=== PATIENT | male | born 1950 | race Caucasian/White ===

== ENCOUNTER 2016-07-30 13:43 | Inpatient (IN) | payer MEDICARE, BC ==
[~2016-07-30] VITALS: Ht 177.8 cm; Wt 77.0 kg
[2016-07-30 14:40] VITALS: BP 150/83; PULSE 105; RESP 20; TEMP 98; O2SAT 98
[2016-07-30] MEDS ORDERED: IBUP400T20 PO (15:46)
[2016-07-30] MEDS ORDERED: ASPI325T PO (15:46)
[2016-07-30] MEDS ORDERED: Vancomycin Consult Pharmacy 1 EA OTHER SCH (17:45)
[2016-07-30 17:50] LABS: AUTOMATED NEUTROPHIL # 3.4 TH/MM3 (1.8-7.7); BASOPHIL % 0.5 % (0.0-2.0); EOSINOPHIL # 0.2 TH/MM3 (0-0.4); EOSINOPHIL % 3.4 % (0.0-4.0); HEMATOCRIT 38.3 % (39.0-51.0); HEMO FLAGS DIFF FINAL; LYMPH % 26.2 % (9.0-44.0); LYMPHOCYTE # 1.5 TH/MM3 (1.0-4.8); MEAN CELL VOLUME 90.7 FL (80.0-100.0); MEAN CORPUSCULAR HEMOGLOBIN 32.2 PG (27.0-34.0); MEAN CORPUSCULAR HGB CONC 35.5 % (32.0-36.0); NEUT % 59.9 % (16.0-70.0); PLATELET COUNT 239 TH/MM3 (150-450); RED BLOOD COUNT 4.22 MIL/MM3 (4.50-5.90); RED CELL DISTRIBUTION WIDTH 12.8 % (11.6-17.2); WHITE BLOOD COUNT 5.7 TH/MM3 (4.0-11.0)
[2016-07-30] MEDS: DEXT 5%-NACL 0.45% 1000 ML INJ 1,000 ML IV SCH (17:51)
[2016-07-30] MEDS: PIPERACIL-TAZO 3.375 GM PREMIX 50 ML IV SCH (17:51)
[2016-07-30] MEDS ORDERED: VANCOMYCIN INJ 1,250 MG in SODIUM CHLOR 0.9% 250 ML INJ 250 ML IV ONE (18:00)
[2016-07-30 18:09] LABS: BICARBONATE 28.1 MEQ/L (21.0-32.0)
[2016-07-30 19:13] VITALS: BP 139/65; PULSE 97; RESP 18; TEMP 98.2; O2SAT 97
[2016-07-30] MEDS ORDERED: PROP20TA3 PO (20:47)
[2016-07-30] MEDS ORDERED: PRIM50TA5 PO (20:47)
[2016-07-31] VITALS (7 sets, daily range): BP systolic 125–163; BP diastolic 72–90; PULSE 76–86; RESP 18–20; TEMP 97.4–98.4; O2SAT 96–100
[2016-07-31] MEDS: PIPERACIL-TAZO 3.375 GM PREMIX 50 ML IV SCH ×4 (00:17→17:25)
[2016-07-31] MEDS: VANCOMYCIN 1,000 MG/NS 250 ML IV SCH ×4 (06:23→17:25)
[2016-07-31] MEDS: DEXT 5%-NACL 0.45% 1000 ML INJ 1,000 ML IV SCH ×2 (09:02→20:13)
--- NOTE | 2016-07-31 21:12 | PD.ID.CON ---
History of Present Illness Service ID Consult Requested By Dr Eastman Reason for Consult scrotal infx; sp penile implant Primary Care Physician Carlos Richardson M.D. Diagnoses: History of Present Illness 65 yo male with ho ED sp penile implant on Jul 06 this yr presented with scrotal swelling , redness and discofort (worse with sitting) persistent after surgery He denies fever, chills, No drainage from incision He was started on abx ( zosyn, vancomycin) and his simptoms significantly improved He can sit without problems today He denies fevers, chills and his WBC is WNL Review of Systems Except as stated in HPI: all other systems reviewed are Neg Past Family Social History Allergies: Coded Allergies: No Known Allergies (Unverified , 07/30/16) NKA Past Medical History HTN TIA ED Past Surgical History neck sx hernia repair peni,le implant Active Ordered Medications Medications where reviewed in EMR Antibiotics Include: vancomycin zosyn Family History Non-Contributory. Social History remote Tobacco (> 40 yrs ago) No ETOH. No Illicit Drugs. Physical Exam Vital Signs Vital Signs Date Time Temp Pulse Resp B/P Pulse Ox O2 Delivery O2 Flow Rate FiO2 07/31/16 19:58 98.3 76 20 163/90 96 07/31/16 15:53 98.3 77 18 141/88 97 07/31/16 12:07 97.9 80 18 140/78 97 07/31/16 08:01 97.4 78 19 149/72 100 07/31/16 04:01 98.4 86 18 125/77 97 07/31/16 00:54 98.2 78 18 128/77 97 Physical Exam CONSTITUTIONAL/GENERAL: This is an adequately nourished patient, in no apparent distress. TUBES/LINES/DRAINS: SKIN: No jaundice, rashes, or lesions. Ecchymoses on upper extremities. No wounds seen anteriorly. Skin temperature appropriate. Not diaphoretic. HEAD: Atraumatic. Normocephalic. EYES: Pupils equal and round and reactive. Extraocular motions intact. No scleral icterus. No injection or drainage. Fundi not examined. ENT: Hearing grossly normal. Nose without bleeding or purulent drainage. oral mucosae moist NECK: Trachea midline. Supple, nontender. No palpable thyroid enlargement or nodularity. CARDIOVASCULAR: Regular rate and rhythm without murmurs, gallops, or rubs. No JVD. Peripheral pulses symmetric. RESPIRATORY/CHEST: Symmetric, unlabored respirations. Clear to auscultation. Breath sounds equal bilaterally. No wheezes, rales, or rhonchi. GASTROINTESTINAL: Abdomen soft, non-tender, nondistended. No hepato-splenomegaly , or palpable masses. No guarding. Bowel sounds present. GENITOURINARY: Without palpable bladder distension. Penis circumsized, no edema, erythema Scrotum appears minimally swollen with some residual eruythema incision well healed and w/o drainage prosthesis puulm palpable not particulartly tender no fluctuance no open sores MUSCULOSKELETAL: Extremities without clubbing, cyanosis, or edema. No joint tenderness or effusion noted. No calf tenderness. No mottling or clubbing. LYMPHATICS: No palpable cervical or supraclavicular adenopathy. NEUROLOGICAL: Awake and alert. Motor and sensory grossly within normal limits. Follows commands. Normal speech Moves all extremities. PSYCHIATRIC: No obvious anxiety/depression. no apparent hallucinations or other psychotic thought process. Result Diagram: 07/30/16 1715 07/30/16 1718 Assessment and Plan Assessment and Plan Scrotal infection post penile impalnt placement -jeffery[proved dramatically w empiric abx ? cellulitis No clx availbale - cont IV abx for nex 24-48 hrs anticipate transition to oral abx to complete 14 days of abx removal of implant need if infection recurs afts discont'n of abx Discussed Condition With Dr Jaren Mendoza,Blaire Baldwin MD Jul 31, 2016 21:12
[2016-07-31] MEDS: PRIMIDONE 250 MG TAB PO SCH (21:42)
[2016-08-01] MEDS: PIPERACIL-TAZO 3.375 GM PREMIX 50 ML IV SCH ×5 (01:05→23:18)
[2016-08-01 04:05] VITALS: BP_SYST 166; BP_SYST 181; BP_DIAS 84; BP_DIAS 90; PULSE 87; RESP 20; TEMP 97.6; O2SAT 96
[2016-08-01] MEDS: VANCOMYCIN 1,000 MG/NS 250 ML IV SCH ×4 (06:05→18:13)
[2016-08-01 08:27] VITALS: BP 135/81; PULSE 90; RESP 18; TEMP 98; O2SAT 96
[2016-08-01] MEDS: DEXT 5%-NACL 0.45% 1000 ML INJ 1,000 ML IV SCH ×2 (09:56→16:39)
[2016-08-01 11:17] VITALS: BP 161/78; PULSE 90; RESP 18; TEMP 98; O2SAT 98
[2016-08-01 15:34] VITALS: BP 183/89; PULSE 90; RESP 16; TEMP 97.7; O2SAT 97
[2016-08-01] MEDS ORDERED: ACETAMINOPHEN 325 MG TAB PO PRN (16:15)
[2016-08-01] MEDS ORDERED: ONDANSETRON HCL 4 MG/2 ML VIAL IV PUSH PRN (16:15)
--- NOTE | 2016-08-01 16:28 | PD.CONS ---
HPI Service [facility] Consult Requested By Reason for Consult medical management Primary Care Physician Carlos Richardson M.D. Diagnoses: History of Present Illness patient is a 65 y/o male with ED, history of hypertension and restless leg syndrome, who was admitted to the hospital for scrotal infection after the penile implant that he had few weeks ago. he says that after he had a procedure he started to have worsening scrotal pain which didn't subside and made him to seek medical attention. he denies ant fever, chills,night sweats, nausea or vomiting. Review of Systems Constitutional: DENIES: Fever, Weight loss, Chills, Night Sweats Eyes: DENIES: Blurred vision, Diplopia, Vision loss, Double Vision Ears, nose, mouth, throat: DENIES: Tinnitus, Vertigo, Throat pain, Epistaxis Respiratory: DENIES: Apneas, Cough, Snoring, Wheezing, Hemoptysis, Sputum production, Shortness of breath Cardiovascular: DENIES: Chest pain, Palpitations, Syncope, Dyspnea on Exertion , PND, Lower Extremity Edema, Orthopnea, Claudication Gastrointestinal: DENIES: Abdominal pain, Black stools, Bloody stools, Constipation, Diarrhea, Nausea, Vomiting, Difficulty Swallowing, Anorexia Genitourinary: COMPLAINS OF: Testicular Pain, DENIES: Urinary frequency, Urgency, Hematuria, Dysuria Musculoskeletal: DENIES: Joint pain, Muscle aches, Stiffness, Joint Swelling Integumentary: DENIES: Rash Neurologic: DENIES: Abnormal gait, Headache, Localized weakness, Paresthesias, Seizures, Speech Problems, Tremor, Poor Balance Psychiatric: DENIES: Anxiety, Confusion, Mood changes, Depression, Hallucinations, Agitation, Suicidal Ideation, Homicidal Ideation, Delusions Past Family Social History Allergies: Coded Allergies: No Known Allergies (Unverified , 07/30/16) NKA Past Medical History hypertension restless leg syndrome Past Surgical History recent penile implant hernia repair cervical spine surgery Reported Medications propranolol ibuprofen aspirin primidone Active Ordered Medications Current Medications Piperacillin Sod/ Tazobactam Sod 50 ml @ 100 mls/hr Q6H IV Last administered on 08/01/16 11:43; Start 07/30/16 at 18:00 Vancomycin HCl 1250 mg/Sodium Chloride 262.5 ml @ 250 mls/hr ONCE ONCE IV Last administered on 07/30/16 18:34; Start 07/30/16 at 18:00; Stop 07/30/16 at 19: 02; Status DC Dextrose/Sodium Chloride 1,000 ml @ 75 mls/hr [id number] IV Last administered on 07/31/16 09:02; Start 07/30/16 at 18:00 Pharmacy Profile Note ml @ 0 mls/hr UNSCH OTHER ; Start 07/30/16 at 17:45 Vancomycin HCl/ Sodium Chloride (Vancomycin Inj/ NS 250 ml Inj) 250 ml @ 250 mls/hr Q12H IV Last administered on 08/01/16 06:05; Start 07/31/16 at 06:00 Miscellaneous Information SPECIFIC LAB TO BE ... ONCE ONCE XX ; Start at 17:45; Stop 08/01/16 at 17:46 Primidone (Mysoline) 750 mg HS PO Last administered on 07/31/16 21:42; Start 07/31/16 at 21:00 Social History quit smoking years ago. Physical Exam Vital Signs Vital Signs Date Time Temp Pulse Resp B/P Pulse Ox O2 Delivery O2 Flow Rate FiO2 08/01/16 15:34 97.7 90 16 183/89 97 08/01/16 11:17 98.0 90 18 161/78 98 08/01/16 08:27 98.0 90 18 135/81 96 08/01/16 04:05 97.6 87 20 166/84 96 07/31/16 23:37 98.0 78 20 148/78 97 07/31/16 19:58 98.3 76 20 163/90 96 Physical Exam GENERAL: This is a well-nourished, well-developed patient, in no apparent distress. SKIN: No rashes, ecchymoses or lesions. Cool and dry. HEAD: Atraumatic. Normocephalic. No temporal or scalp tenderness. EYES: Pupils equal round and reactive. Extraocular motions intact. No scleral icterus. No injection or drainage. ENT: Nose without bleeding, purulent drainage or septal hematoma. Throat without erythema, tonsillar hypertrophy or exudate. Uvula midline. Airway patent. NECK: Trachea midline. No JVD or lymphadenopathy. Supple, nontender, no meningeal signs. CARDIOVASCULAR: Regular rate and rhythm without murmurs, gallops, or rubs. RESPIRATORY: Clear to auscultation. Breath sounds equal bilaterally. No wheezes , rales, or rhonchi. GASTROINTESTINAL: Abdomen soft, non-tender, nondistended. No hepato-splenomegaly , or palpable masses. No guarding. MUSCULOSKELETAL: Extremities without clubbing, cyanosis, or edema. No joint tenderness, effusion, or edema noted. No calf tenderness. Negative Homans sign bilaterally. Genitourinary; mildly tender scrotum NEUROLOGICAL: Awake and alert. Cranial nerves II through XII intact. Motor and sensory grossly within normal limits. Five out of 5 muscle strength in all muscle groups. Normal speech. Result Diagram: 07/30/16 1715 07/30/16 1718 Assessment and Plan Assessment and Plan A/P - scrotal infection- post penile implant placement continue with IV antibiotics and pain control- ID consulted- management per urology -hypertension; resume home meds- will monitor -restless leg syndrome; he says that he takes Tylenol at home which will be resumed. Thank you for the consult. Discussed Condition With the patient. Jacque Moss MD Aug 01, 2016 16:28
[2016-08-01] MEDS: PROPRANOLOL HCL 20 MG TAB PO SCH ×2 (16:30→21:09)
[2016-08-01] MEDS ORDERED: PHARMACY ORDERED LAB XX ONE (17:45)
[2016-08-01 19:52] VITALS: BP 151/80; PULSE 79; RESP 20; TEMP 98; O2SAT 95
[2016-08-01] MEDS: PRIMIDONE 250 MG TAB PO SCH (21:00)
--- NOTE | 2016-08-01 21:47 | HHI.PR ---
Subjective Remarks doing better. minimal pain in scrotum. Denies fevers, chills, nausea. Objective Vital Signs Vital Signs Date Time Temp Pulse Resp B/P Pulse Ox O2 Delivery O2 Flow Rate FiO2 08/01/16 19:52 98.0 79 20 151/80 95 08/01/16 17:56 18 08/01/16 15:34 97.7 90 16 183/89 97 08/01/16 11:17 98.0 90 18 161/78 98 08/01/16 08:27 98.0 90 18 135/81 96 08/01/16 04:05 97.6 87 20 166/84 96 07/31/16 23:37 98.0 78 20 148/78 97 I/O 07/31/16 07/31/16 07/31/16 08/01/16 08/01/16 08/01/16 07:00 15:00 23:00 07:00 15:00 23:00 Intake Total 750 ml Balance 750 ml Intake IV Total 750 ml # Voids 4 1 1 Result Diagram: 07/30/16 1715 07/30/16 1718 Objective Remarks NAD. A/O x 3 abd soft scrotum soft, mild tenderness to palpation, but no erythema, crepitus, drainage noted. Assessment and Plan Assessment and Plan 1. Infected penile prosthesis -improving -antibiotics per ID -pain control - anticipate d/c next 24-48 hours Martínez Self MD Aug 01, 2016 21:47
[2016-08-01] MEDS ORDERED: PRIMIDONE 50 MG TAB PO SCH (22:00)
[2016-08-02 00:20] VITALS: BP 130/68; PULSE 68; RESP 20; TEMP 97.6; O2SAT 96
[2016-08-02 03:34] VITALS: BP 161/79; PULSE 67; RESP 20; TEMP 97.4; O2SAT 97
[2016-08-02] MEDS: PIPERACIL-TAZO 3.375 GM PREMIX 50 ML IV SCH ×4 (05:42→23:52)
[2016-08-02] MEDS: PROPRANOLOL HCL 20 MG TAB PO SCH ×3 (05:42→21:39)
[2016-08-02] MEDS: VANCOMYCIN 1,000 MG/NS 250 ML IV SCH ×4 (06:39→17:50)
[2016-08-02] MEDS: DEXT 5%-NACL 0.45% 1000 ML INJ 1,000 ML IV SCH ×2 (07:54→23:57)
[2016-08-02] MEDS: ENALAPRILAT 1.25 MG/ML VIAL IV PUSH PRN (07:54)
[2016-08-02 09:33] VITALS: BP 192/85; PULSE 63; RESP 18; TEMP 96.8; O2SAT 97
[2016-08-02 11:32] VITALS: BP 149/71; PULSE 66; RESP 19; TEMP 97.3; O2SAT 99
--- NOTE | 2016-08-02 13:42 | HHI.PR ---
Subjective Remarks overall doing fine. no fever. pain is controlled. d/w the RN and no acute issues over night. Objective Vitals Vital Signs Date Time Temp Pulse Resp B/P Pulse Ox O2 Delivery O2 Flow Rate FiO2 08/02/16 11:32 97.3 66 19 149/71 99 08/02/16 09:33 96.8 63 18 192/85 97 08/02/16 03:34 97.4 67 20 161/79 97 08/02/16 00:20 97.6 68 20 130/68 96 08/01/16 19:52 98.0 79 20 151/80 95 08/01/16 17:56 18 08/01/16 15:34 97.7 90 16 183/89 97 Result Diagram: 07/30/16 1715 07/30/16 1718 Objective Remarks GENERAL: This is a well-nourished, well-developed patient, in no apparent distress. CARDIOVASCULAR: Regular rate and regular rhythm without murmurs, gallops, or rubs. RESPIRATORY: Clear to auscultation. Breath sounds equal bilaterally. No wheezes , rales, or rhonchi. GASTROINTESTINAL: Abdomen soft, non-tender, nondistended. Normal, active bowel sounds MUSCULOSKELETAL: Extremities without clubbing, cyanosis, or edema. NEURO: Alert & Oriented x4 to person, place, time, situation. Moves all ext x4 Procedures none Medications and IVs Current Medications Piperacillin Sod/ Tazobactam Sod 50 ml @ 100 mls/hr Q6H IV Last administered on 08/02/16 11:02; Start 07/30/16 at 18:00 Vancomycin HCl 1250 mg/Sodium Chloride 262.5 ml @ 250 mls/hr ONCE ONCE IV Last administered on 07/30/16 18:34; Start 07/30/16 at 18:00; Stop 07/30/16 at 19: 02; Status DC Dextrose/Sodium Chloride 1,000 ml @ 75 mls/hr [id number] IV Last administered on 08/02/16 07:54; Start 07/30/16 at 18:00 Pharmacy Profile Note ml @ 0 mls/hr UNSCH OTHER ; Start 07/30/16 at 17:45 Vancomycin HCl/ Sodium Chloride (Vancomycin Inj/ NS 250 ml Inj) 250 ml @ 250 mls/hr Q12H IV Last administered on 08/02/16 06:39; Start 07/31/16 at 06:00 Miscellaneous Information SPECIFIC LAB TO BE .. ONCE ONCE XX Last administered on 08/01/16 17:45; Start 08/01/16 at 17:45; Stop 08/01/16 at 17:46 ; Status DC Primidone (Mysoline) 750 mg HS PO Last administered on 07/31/16 21:42; Start 07/31/16 at 21:00; Stop 08/01/16 at 21:59; Status DC Acetaminophen (Tylenol) 650 mg Q4H PRN PO FEVER/ HEADACHE/PAIN Last administered on 08/01/16 16:33; Start 08/01/16 at 16:15 Ondansetron HCl (Zofran Inj) 4 mg Q8H PRN IV PUSH NAUSEA; Start 08/01/16 at 16: 15 Propranolol HCl (Inderal) 20 mg Q8HR PO Last administered on 08/02/16 05:42; Start 08/01/16 at 16:15 Enalaprilat (Vasotec Inj) 1.25 mg Q8H PRN IV PUSH SBP> OR = 180, DBP> OR = 100 Last administered on 08/02/16 07:54; Start 08/01/16 at 16:30 Miscellaneous Information SPECIFIC LAB TO BE DRAWN:VANCO TROUGH DATE TO BE ONCE ONCE XX ; Start 08/02/16 at 17:45; Stop 08/02/16 at 17:46 Primidone (Mysoline) 150 mg HS PO ; Start 08/01/16 at 22:00; Stop 08/01/16 at 22 :00; Status DC Primidone (Mysoline) 150 mg HS PO ; Start 08/02/16 at 21:00 A/P Assessment and Plan A/P - scrotal infection- post penile implant placement continue with IV antibiotics and pain control- ID consulted- management per urology -hypertension; resumed home meds- will monitor -restless leg syndrome; he says that he takes Tylenol at home which was resumed. Discharge Planning dc planning per urology. d/w the patient and BESSY. Jacque Moss MD Aug 02, 2016 13:42
[2016-08-02 16:00] VITALS: BP 156/65; PULSE 58; RESP 19; TEMP 98; O2SAT 97
[2016-08-02] MEDS ORDERED: PHARMACY ORDERED LAB XX ONE (17:45)
[2016-08-02 19:33] VITALS: BP 135/70; PULSE 66; RESP 21; TEMP 97.8; O2SAT 98
--- NOTE | 2016-08-02 20:08 | HHI.PR ---
Subjective Remarks doing well. denies pain. denies fevers, chills,nausea, dysuria. Objective Vital Signs Vital Signs Date Time Temp Pulse Resp B/P Pulse Ox O2 Delivery O2 Flow Rate FiO2 08/02/16 19:33 97.8 66 21 135/70 98 08/02/16 16:00 98.0 58 19 156/65 97 08/02/16 11:32 97.3 66 19 149/71 99 08/02/16 09:33 96.8 63 18 192/85 97 08/02/16 03:34 97.4 67 20 161/79 97 08/02/16 00:20 97.6 68 20 130/68 96 Result Diagram: 07/30/16 1715 07/30/16 1718 Objective Remarks NAD. A/O x 3 abd soft scrotum soft, mild tenderness to palpation, but no erythema, crepitus, drainage noted. Assessment and Plan Assessment and Plan 1. Infected penile prosthesis -doing well -d/c in a.m. once ID gives final recommendations. -F/U with Dr. Eastman this week. Martínez Self MD Aug 02, 2016 20:08
[2016-08-02] MEDS: PRIMIDONE 50 MG TAB PO SCH (21:39)
[2016-08-03] VITALS (8 sets, daily range): BP systolic 119–205; BP diastolic 64–95; PULSE 57–81; RESP 17–21; TEMP 97.6–98.7; O2SAT 97–100
[2016-08-03] MEDS: PROPRANOLOL HCL 20 MG TAB PO SCH ×3 (05:19→18:53)
[2016-08-03] MEDS: PIPERACIL-TAZO 3.375 GM PREMIX 50 ML IV SCH ×3 (05:19→20:22)
[2016-08-03] MEDS: VANCOMYCIN 1,000 MG/NS 250 ML IV SCH ×2 (06:20)
[2016-08-03] MEDS: ENALAPRILAT 1.25 MG/ML VIAL IV PUSH PRN (11:42)
--- NOTE | 2016-08-03 13:32 | HHI.IDPN ---
Subjective Subjective Remarks doing well no pain when sitting has some fullness sensation in scrotum with he attributes to prosthesis co liquid BMs x 2 in the last 24 hrs no abd pain' no fever Antibiotics zosyn vanco Allergies: Coded Allergies: No Known Allergies (Unverified , 07/30/16) NKA Objective . Vital Signs Date Time Temp Pulse Resp B/P Pulse Ox O2 Delivery O2 Flow Rate FiO2 08/03/16 11:30 97.9 57 20 199/86 99 08/03/16 07:23 97.7 61 17 147/67 100 08/03/16 04:42 98.7 70 18 181/88 97 08/03/16 01:08 97.8 81 21 139/71 98 08/02/16 19:33 97.8 66 21 135/70 98 08/02/16 16:00 98.0 58 19 156/65 97 Imaging CONSTITUTIONAL/GENERAL: This is an adequately nourished patient, in no apparent distress. TUBES/LINES/DRAINS: SKIN: No jaundice, rashes, or lesions.Skin temperature appropriate. Not diaphoretic. EYES: No scleral icterus. No injection or drainage. ENT: oral mucosae moist CARDIOVASCULAR: Regular rate and rhythm without murmurs, gallops, or rubs. No JVD. Peripheral pulses symmetric. RESPIRATORY/CHEST: Symmetric, unlabored respirations. Clear to auscultation. Breath sounds equal bilaterally. No wheezes, rales, or rhonchi. GASTROINTESTINAL: Abdomen soft, non-tender, nondistended. No hepato-splenomegaly , or palpable masses. No guarding. Bowel sounds present. GENITOURINARY: Without palpable bladder distension. Penis circumsized, no edema, erythema Scrotum appears not swollen not erythematous incision well healed and w/o drainage prosthesis palpable not tender no fluctuance no open sores MUSCULOSKELETAL: Extremities without clubbing, cyanosis, or edema. NEUROLOGICAL: Awake and alert. Motor and sensory grossly within normal limits. Follows commands. Normal speech Moves all extremities. Assessment & Plan Remarks Scrotal infection post penile impalnt placement -im[proved dramatically w empiric abx ? cellulitis No clx availbalenew issue - abx associated diarrhea - transition to oral abx to complete 14 days of abx: clindamycin 300 qid for 10 days levaquin 750 daily for 10 days removal of implant need if infection recurs after discont'n of abx - chk stool for C.diff if having more liquid BMs pt was instructed to report nausea, vomiting diarrhea, abdominal pain during or after abx treatment OK to dc home if no more diarrhea Discussed Condition With pt bruno his spuse Blaire Mendoza MD Aug 03, 2016 13:32
[2016-08-03] MEDS ORDERED: LEVOFLOXACIN 750 MG TAB PO SCH (14:00)
--- NOTE | 2016-08-03 14:34 | HHI.PR ---
Subjective Remarks overall doing fine. no fever. pain is controlled. had one loose BM since last night. wants to go home today. Objective Vitals Vital Signs Date Time Temp Pulse Resp B/P Pulse Ox O2 Delivery O2 Flow Rate FiO2 08/03/16 11:30 97.9 57 20 199/86 99 08/03/16 07:23 97.7 61 17 147/67 100 08/03/16 04:42 98.7 70 18 181/88 97 08/03/16 01:08 97.8 81 21 139/71 98 08/02/16 19:33 97.8 66 21 135/70 98 08/02/16 16:00 98.0 58 19 156/65 97 Result Diagram: 07/30/16 1715 07/30/16 1718 Objective Remarks GENERAL: This is a well-nourished, well-developed patient, in no apparent distress. CARDIOVASCULAR: Regular rate and regular rhythm without murmurs, gallops, or rubs. RESPIRATORY: Clear to auscultation. Breath sounds equal bilaterally. No wheezes , rales, or rhonchi. GASTROINTESTINAL: Abdomen soft, non-tender, nondistended. Normal, active bowel sounds MUSCULOSKELETAL: Extremities without clubbing, cyanosis, or edema. NEURO: Alert & Oriented x4 to person, place, time, situation. Moves all ext x4 Procedures none Medications and IVs Current Medications Piperacillin Sod/ Tazobactam Sod 50 ml @ 100 mls/hr Q6H IV Last administered on 08/03/16 12:42; Start 07/30/16 at 18:00; Stop 08/03/16 at 13:34; Status DC Vancomycin HCl 1250 mg/Sodium Chloride 262.5 ml @ 250 mls/hr ONCE ONCE IV Last administered on 07/30/16 18:34; Start 07/30/16 at 18:00; Stop 07/30/16 at 19: 02; Status DC Dextrose/Sodium Chloride 1,000 ml @ 75 mls/hr [id number] IV Last administered on 08/02/16 23:57; Start 07/30/16 at 18:00 Pharmacy Profile Note ml @ 0 mls/hr UNSCH OTHER ; Start 07/30/16 at 17:45; Stop 08/03/16 at 13:34; Status DC Vancomycin HCl/ Sodium Chloride (Vancomycin Inj/ NS 250 ml Inj) 250 ml @ 250 mls/hr Q12H IV Last administered on 08/03/16 06:20; Start 07/31/16 at 06:00; Stop 08/03/16 at 13:34; Status DC Miscellaneous Information SPECIFIC LAB TO BE ... ONCE ONCE XX Last administered on 08/01/16 17:45; Start 08/01/16 at 17:45; Stop 08/01/16 at 17:46 ; Status DC Primidone (Mysoline) 750 mg HS PO Last administered on 07/31/16 21:42; Start 07/31/16 at 21:00; Stop 08/01/16 at 21:59; Status DC Acetaminophen (Tylenol) 650 mg Q4H PRN PO FEVER/ HEADACHE/PAIN Last administered on 08/01/16 16:33; Start 08/01/16 at 16:15 Ondansetron HCl (Zofran Inj) 4 mg Q8H PRN IV PUSH NAUSEA; Start 08/01/16 at 16: 15 Propranolol HCl (Inderal) 20 mg Q8HR PO Last administered on 08/03/16 05:19; Start 08/01/16 at 16:15 Enalaprilat (Vasotec Inj) 1.25 mg Q8H PRN IV PUSH SBP> OR = 180, DBP> OR = 100 Last administered on 08/03/16 11:42; Start 08/01/16 at 16:30 Miscellaneous Information SPECIFIC LAB TO BE DRAWN:VANCO TROUGH DATE TO BE .. ONCE ONCE XX Last administered on 08/02/16 17:45; Start 08/02/16 at 17: 45; Stop 08/02/16 at 17:46; Status DC Primidone (Mysoline) 150 mg HS PO ; Start 08/01/16 at 22:00; Stop 08/01/16 at 22 :00; Status DC Primidone (Mysoline) 150 mg HS PO Last administered on 08/02/16 21:39; Start 08/02/16 at 21:00 Levofloxacin (Levaquin) 750 mg Q24H PO ; Start 08/03/16 at 14:00; Stop 08/13/16 at 13:59 Clindamycin HCl (Cleocin) 300 mg Q6H PO ; Start 08/03/16 at 14:00 A/P Assessment and Plan A/P - scrotal infection- post penile implant placement will switch to po levaquin and clindamycin per ID recommendations. -diarrhea- he says that it's better now. advised to notify his PCP if diarrhea persists or gets worse. -hypertension; resumed home meds- will monitor -restless leg syndrome; he says that he takes Tylenol at home which was resumed. Discharge Planning offered to stay one more night to observe him for diarrhea but he says that ' he 's fine' and wants to go home today. clear for discharge by hospitalist. f/u; pcp and urology. d/w the patient and RN. Jacque Moss MD Aug 03, 2016 14:34
[2016-08-03] MEDS ORDERED: LEVA750T PO (14:35)
[2016-08-03] MEDS ORDERED: CLIN150 PO (14:35)
[2016-08-03] MEDS: DEXT 5%-NACL 0.45% 1000 ML INJ 1,000 ML IV SCH (15:20)
[2016-08-03] MEDS: CLINDAMYCIN 150 MG CAP PO SCH ×2 (15:30→20:22)
[2016-08-03] MEDS ORDERED: NIFEdipine 30 MG SUSTAINED RELEASE TAB PO ONE (19:15)
[2016-08-03] MEDS: PRIMIDONE 50 MG TAB PO SCH (20:22)
--- NOTE | 2016-08-03 20:22 | HHI.PR ---
Subjective Remarks Patient seen and examined with Dr. Eastman. Patient report doing well, comfortable with little to no pain. No fevers. Tolerating diet well Objective Vital Signs Vital Signs Date Time Temp Pulse Resp B/P Pulse Ox O2 Delivery O2 Flow Rate FiO2 08/03/16 18:00 67 205/95 08/03/16 15:47 98.0 61 20 189/91 100 08/03/16 14:29 119/64 08/03/16 11:30 97.9 57 20 199/86 99 08/03/16 07:23 97.7 61 17 147/67 100 08/03/16 04:42 98.7 70 18 181/88 97 08/03/16 01:08 97.8 81 21 139/71 98 Result Diagram: 07/30/16 1715 07/30/161717 Objective Remarks NAD. A/O x 3 abd soft, NT scrotum soft, mild tenderness to palpation, but no erythema, crepitus, drainage noted. Pump is palpable at the inferior portion of the scrotum, moderately tender to palpation Assessment and Plan Assessment and Plan -Dr. Eastman present throughout and discussed with patient plan for further antibiotics and close follow-up -Continue Zosyn until patient is discharged at which point he may be transitioned to PO abx of Levaquin and Clindamycin -Patient is clear for discharge from Urology standpoint tomorrow morning Moses Sow MD Aug 03, 2016 20:22
[2016-08-04 01:28] VITALS: BP 148/79; PULSE 69; RESP 18; TEMP 97.8; O2SAT 97
[2016-08-04] MEDS: CLINDAMYCIN 150 MG CAP PO SCH ×2 (02:00→07:44)
[2016-08-04] MEDS: PIPERACIL-TAZO 3.375 GM PREMIX 50 ML IV SCH ×2 (02:01→07:45)
[2016-08-04] MEDS: DEXT 5%-NACL 0.45% 1000 ML INJ 1,000 ML IV SCH (04:40)
[2016-08-04 05:27] VITALS: BP 142/85; PULSE 85; RESP 18; TEMP 97.8; O2SAT 97
[2016-08-04] MEDS: PROPRANOLOL HCL 20 MG TAB PO SCH (05:58)
[2016-08-04 07:17] VITALS: BP 164/89; PULSE 62; RESP 18; TEMP 95.9; O2SAT 95
--- NOTE | 2016-08-04 07:56 | HHI.PR ---
Subjective Remarks resting comfortably with no distress. no fever. diarrhea has much improved. BP overall better. Objective Vitals Vital Signs Date Time Temp Pulse Resp B/P Pulse Ox O2 Delivery O2 Flow Rate FiO2 08/04/16 07:17 95.9 62 18 164/89 95 08/04/16 05:27 97.8 85 18 142/85 97 08/04/16 01:28 97.8 69 18 148/79 97 08/03/16 20:24 97.6 66 18 184/86 100 08/03/16 18:00 67 205/95 08/03/16 15:47 98.0 61 20 189/91 100 08/03/16 14:29 119/64 08/03/16 11:30 97.9 57 20 199/86 99 Objective Remarks GENERAL: This is a well-nourished, well-developed patient, in no apparent distress. CARDIOVASCULAR: Regular rate and regular rhythm without murmurs, gallops, or rubs. RESPIRATORY: Clear to auscultation. Breath sounds equal bilaterally. No wheezes , rales, or rhonchi. GASTROINTESTINAL: Abdomen soft, non-tender, nondistended. Normal, active bowel sounds MUSCULOSKELETAL: Extremities without clubbing, cyanosis, or edema. NEURO: Alert & Oriented x4 to person, place, time, situation. Moves all ext x4 Procedures none Medications and IVs Current Medications Piperacillin Sod/ Tazobactam Sod 50 ml @ 100 mls/hr Q6H IV Last administered on 08/03/16 12:42; Start 07/30/16 at 18:00; Stop 08/03/16 at 13:34; Status DC Vancomycin HCl 1250 mg/Sodium Chloride 262.5 ml @ 250 mls/hr ONCE ONCE IV Last administered on 07/30/16 18:34; Start 07/30/16 at 18:00; Stop 07/30/16 at 19: 02; Status DC Dextrose/Sodium Chloride 1,000 ml @ 75 mls/hr [id number] IV Last administered on 08/02/16 23:57; Start 07/30/16 at 18:00 Pharmacy Profile Note ml @ 0 mls/hr UNSCH OTHER ; Start 07/30/16 at 17:45; Stop 08/03/16 at 13:34; Status DC Vancomycin HCl/ Sodium Chloride (Vancomycin Inj/ NS 250 ml Inj) 250 ml @ 250 mls/hr Q12H IV Last administered on 08/03/16 06:20; Start 07/31/16 at 06:00; Stop 08/03/16 at 13:34; Status DC Miscellaneous Information SPECIFIC LAB TO BE ... ONCE ONCE XX Last administered on 08/01/16 17:45; Start 08/01/16 at 17:45; Stop 08/01/16 at 17:46 ; Status DC Primidone (Mysoline) 750 mg HS PO Last administered on 07/31/16 21:42; Start 07/31/16 at 21:00; Stop 08/01/16 at 21:59; Status DC Acetaminophen (Tylenol) 650 mg Q4H PRN PO FEVER/ HEADACHE/PAIN Last administered on 08/01/16 16:33; Start 08/01/16 at 16:15 Ondansetron HCl (Zofran Inj) 4 mg Q8H PRN IV PUSH NAUSEA; Start 08/01/16 at 16: 15 Propranolol HCl (Inderal) 20 mg Q8HR PO Last administered on 08/04/16 05:58; Start 08/01/16 at 16:15 Enalaprilat (Vasotec Inj) 1.25 mg Q8H PRN IV PUSH SBP> OR = 180, DBP> OR = 100 Last administered on 08/03/16 11:42; Start 08/01/16 at 16:30 Miscellaneous Information SPECIFIC LAB TO BE DRAWN:VANCO TROUGH DATE TO BE .. ONCE ONCE XX Last administered on 08/02/16 17:45; Start 08/02/16 at 17: 45; Stop 08/02/16 at 17:46; Status DC Primidone (Mysoline) 150 mg HS PO ; Start 08/01/16 at 22:00; Stop 08/01/16 at 22 :00; Status DC Primidone (Mysoline) 150 mg HS PO Last administered on 08/03/16 20:22; Start 08/02/16 at 21:00 Levofloxacin (Levaquin) 750 mg Q24H PO Last administered on 08/03/16 15:29; Start 08/03/16 at 14:00; Stop 08/13/16 at 13:59 Clindamycin HCl 300 mg 300 mg Q6H PO Last administered on 08/04/16 07:44; Start 08/03/16 at 14:00 Piperacillin Sod/ Tazobactam Sod (Zosyn 3.375 Gm Premix) 50 ml @ 100 mls/hr Q6H IV Last administered on 08/04/16 07:45; Start 08/03/16 at 20:00 Nifedipine (Procardia Xl) 30 mg NOW ONCE PO Last administered on 08/03/16 19: 19; Start 08/03/16 at 19:15; Stop 08/03/16 at 19:16; Status DC A/P Assessment and Plan A/P - scrotal infection- post penile implant placement switched to po levaquin and clindamycin per ID recommendations. -diarrhea- much improved. advised to notify his PCP if diarrhea persists or gets worse. -hypertension;BP overall better- resume home meds upon discharge and f/u as outpatient. -restless leg syndrome; he says that he takes Tylenol at home which was resumed. Discharge Planning medically stable for discharge. f/u with pcp and urology. Jacque Moss MD Aug 04, 2016 07:56
--- NOTE | 2016-09-18 18:12 | HHI.DS ---
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 He was placed on IV abx. His WBC improved as well as his overall clinical picture. Patient was discharged with abx with close follow-up in clinic. Pt Condition on Discharge: Good Discharge Disposition: Discharge Home Discharge Instructions DIET: Follow Instructions for: As Tolerated, No Restrictions Activities you can perform: Regular-No Restrictions Moses Sow MD Sep 18, 2016 18:12
== END 2016-08-04 10:05 | disposition home or self-care (01) | DRG 700 ==
LOC: NEPGCP 14:07 → OBSVTOIN 07-31 14:12
DX: T83.61XA Infection and inflammatory reaction due to implanted penile prosthesis, initial encounter (principal); I10 Essential (primary) hypertension; N49.2 Inflammatory disorders of scrotum; G25.81 Restless legs syndrome; Y83.1 Surgical operation with implant of artificial internal device as the cause of abnormal reaction of the patient, or of later complication, without mention of misadventure at the time of the procedure; R19.7 Diarrhea, unspecified; Z87.891 Personal history of nicotine dependence
CPT/HCPCS: 80048; 80202; 85025; G0378; J2543; J3370; J7050